=== PATIENT | female | born 1955 | race Caucasian/White ===

== ENCOUNTER → 2017-04-24 | Outpatient (CLI) | payer BC ==
[~2017-04-24] MED LIST: ACETAMINOPHEN PO; ALENDRONATE SOD70 MG PO; ALEVE; CERTAGEN PO; DEXFOL PO; EFFEXOR XR; EFFEXOR XR PO; HYZAAR 100-25 T1 TAB PO; IBUPROFEN; L-THYROXINE PO; LORTAB 10/500 T1 TAB PO; LYRICA PO; NAPROXEN PO; NASAL SPRAY; NORVASC; OYSTER CALCIUM500 MG PO; PHENERGAN; RHINOCORT AQUA8.6 GM; SYNTHROID PO; TYLENOL ARTHRITES; VICODIN 5/500 T1 TAB PO; VIT E PO; VITAMIN B COMPLEX PO; VITAMIN C PO; VITAMIN D 4001 UDTAB PO; VITAMIN D PO
--- NOTE | ~2017-04-24 | MY29 ---
[facility] A Service of [facility] RADIOLOGY TEXT RESULTS PATIENT: TAMMY AVENDANO LOCATION: [facility] : 55 UNIT #: [id number] AGE: [address]: Mejia Chang MD SEX: F ORDER DR: [id number] [facility] [address] [place], [place] [address] [id number] O MR#: [id number] Acc #: [id number] NAME: TAMMY AVENDANO : 1955 SEX: F STUDY DATE/TIME: 04/24/2017 7:50 UNIT: [facility] ROOM: STUDY DESCRIPTION: MY KEERTHI SCREENING W/ CAD BILAT Attending Physician: Mejia Chang M.D. Referring Physician: Mejia Chang M.D. Ordering Physician: Mejia Chang M.D. Primary Care Physician: Mejia Chang M.D. MEDICAL IMAGING REPORT This report is preliminary unless electronic signature is present EXAM Digital screening mammogram 04/24/2017, [facility] HISTORY 61-year-old woman, no risk elevation. History of non-Hodgkin's lymphoma. Annual screen. COMPARISON Mammograms date to 03/31/2006, with most recent screening comparison 06/15/2015. Diagnostic followup left breast 01/25/2016. FINDINGS Digital imaging of each breast was completed utilizing screening protocol. Review includes FDA-approved CAD device. Breast parenchyma is pre dominate fatty replaced. Small nodular opacity located central left breast on B craniocaudal projection is no longer identified. There is no interval occurring breast mass. There are no suspicious microcalcifications and no architectural deformity. IMPRESSION Negative mammogram. Annual screening recommended. Patient's over the age of 40 are entered into a reminder system with target due date for the next mammogram. A result letter will be sent to the patient. BIRADS: 1 Negative Dictated by... Lavelle Gastelum M.D. THIS IS AN ELECTRONICALLY VERIFIED REPORT [facility] A Service of [facility] RADIOLOGY TEXT RESULTS PATIENT: TAMMY AVENDANO LOCATION: [facility] : 55 UNIT #: [id number] AGE: [address]: Mejia Chang MD SEX: F ORDER DR: Lavelle Gastelum M.D. at 04/24/2017 3:44 PM JBB/tracy TD: 04/24/2017 14:46 JOB #: [id number] MEDICAL IMAGING REPORT Page 1 of 1 COPY
== END | disposition home or self-care (01) ==
LOC: CWCC 07:39
DX: Z12.31 Encounter for screening mammogram for malignant neoplasm of breast (principal); Z85.72 Personal history of non-Hodgkin lymphomas
CPT/HCPCS: G0202